=== PATIENT | female | born 1945 | race Two or more races ===

== ENCOUNTER 2019-02-22 21:18 | Emergency (ER) | payer OTHER ==
[~2019-02-22] VITALS: Ht 157.5 cm; Wt 69.4 kg
--- NOTE | 2019-02-22 21:21 | NUR ---
NIL x 1 Addendum: 02/22/19 at 2121 by [email or web address] Pt in bathroom.
--- NOTE | 2019-02-22 21:45 | NUR ---
Assessment made. seen by PA. orders made.
--- NOTE | 2019-02-22 21:50 | NUR ---
patient to Xray.
[2019-02-22] MEDS ORDERED: BACITRACIN ZINC OINT 500U/GM, 0.9 GM ONE ×2 (23:10)
[2019-02-22 23:40] VITALS: BP 144/88
== END 2019-02-22 23:20 | disposition home or self-care (01) ==
LOC: ED 23:05
DX: S43.51XA Sprain of right acromioclavicular joint, initial encounter (principal); S20.319A Abrasion of unspecified front wall of thorax, initial encounter; S90.02XA Contusion of left ankle, initial encounter; S90.01XA Contusion of right ankle, initial encounter; S90.32XA Contusion of left foot, initial encounter; S90.31XA Contusion of right foot, initial encounter; I10 Essential (primary) hypertension; W10.0XXA Fall (on)(from) escalator, initial encounter; Y93.89 Activity, other specified; Y92.89 Other specified places as the place of occurrence of the external cause; Y99.8 Other external cause status
CPT/HCPCS: 99283